=== PATIENT | female | born 1995 | race Caucasian/White ===

== ENCOUNTER 2023-01-14 22:41 | Emergency (ER) | payer BC, SELFPAY ==
[~2023-01-14] VITALS: Ht 152.4 cm; Wt 77.2 kg
[2023-01-14 22:42] VITALS: BP 103/73
[2023-01-15] MEDS ORDERED: NEOSPORIN OINT 0.9 GM PKT TOP ONE (01:55)
[2023-01-15] MEDS ORDERED: BOOSTRIX VACCINE (TETANUS/DIPHTH/ACEL. PERTUSSIS) 0.5ML SYR IM ONE (01:55)
[2023-01-15] MEDS ORDERED: LIDOCAINE 1% MDV 20ML VIAL SC ONE (01:55)
== END 2023-01-15 02:40 | disposition home or self-care (01) ==
LOC: M ED 22:41
DX: S61.412A Laceration without foreign body of left hand, initial encounter (principal); X58.XXXA Exposure to other specified factors, initial encounter; Y92.009 Unspecified place in unspecified non-institutional (private) residence as the place of occurrence of the external cause; Y93.89 Activity, other specified; Z88.0 Allergy status to penicillin